=== PATIENT | female | born 1945 | race African-American/Black ===

== ENCOUNTER 2025-08-17 15:39 | Inpatient (IN) | payer MEDICARE, OTHER ==
[~2025-08-17] VITALS: Ht 162.6 cm; Wt 76.2 kg
[2025-08-17 15:45] VITALS: O2SAT 100
[2025-08-17] MEDS ORDERED: IOHEXOL-350 100 ML BOTTLE ONE (16:09)
[2025-08-17 17:46] LABS: BASOPHILS % 0.6 % (0.0-2.0); EOSINOPHILS % 1.4 % (0.0-5.0); HEMATOCRIT. 42.5 % (36.0-48.0); HEMOGLOBIN. 13.6 g/dL (12.0-16.0); LYMPHOCYTES % 13.5 % (20.0-50.0); MEAN PLATELET VOLUME 8.6 fl (7.4-10.4); MONOCYTES % 7.0 % (2.0-8.0); NEUTROPHILS % 77.5 % (40.0-76.0); PLATELET 232 x1000/uL (130-400); RED BLOOD CELL COUNT 4.88 mill/uL (4.2-5.4); RED CELL DISTRIBUTION WIDTH 15.0 % (11.6-14.6)
[2025-08-17 18:00] LABS: CREATININE 1.8 mg/dL (0.6-1.0); INR 1.0
[2025-08-17 18:01] LABS: UREA NITROGEN BLOOD 23 mg/dL (9-23)
[2025-08-17 18:02] LABS: ASPARTATE AMINOTRANSFERASE 12 IU/L (<34)
[2025-08-17 18:03] LABS: BILIRUBIN DIRECT 0.2 mg/dL (<=3.0); BILIRUBIN TOTAL 0.6 mg/dL (0.1-1.0); PROTEIN TOTAL 7.1 g/dL (6.0-8.3)
[2025-08-17 18:55] LABS: TROPONIN I HIGH SENSITIVITY 241 ng/L (3.0-34)
[2025-08-17] MEDS ORDERED: POTASSIUM CHLORIDE 20MEQ TABLET SR PO PRN (20:30)
[2025-08-17] MEDS ORDERED: ACETAMINOPHEN 325MG TABLET PO PRN (20:30)
[2025-08-17] MEDS ORDERED: ONDANSETRON HCL 4MG/2ML INJ IV PRN (20:30)
[2025-08-17] MEDS ORDERED: ENOXAPARIN 40MG/0.4ML SYR SUBCUT SCH (20:30)
[2025-08-17] MEDS ORDERED: IPRATROPIUM/ALBUTEROL 0.5-3(2.5)MG/3ML NEB HHN PRN (20:30)
[2025-08-17] MEDS ORDERED: ASPIRIN 81MG TABLET PO ONE (20:30)
[2025-08-17] MEDS ORDERED: DOCUSATE SODIUM 100MG CAPSULE PO PRN (20:30)
[2025-08-17] MEDS ORDERED: HYDROCODONE/ACETAMINOPHEN 5/325MG TABLET PO PRN (20:30)
[2025-08-17] MEDS ORDERED: MAGNESIUM/ALUMINUM HYDROXIDE/SIMETHICONE 30ML UDC PO PRN (20:30)
[2025-08-17] MEDS ORDERED: DEXTROSE 50% WATER 50ML SYRINGE IV PRN ×2 (20:30)
[2025-08-17] MEDS ORDERED: NALOXONE HCL 0.4MG/ML VIAL IV PRN (20:45)
[2025-08-17 20:47] VITALS: BP 173/66; PULSE 63; RESP 18; TEMP 36.5848
[2025-08-17 21:00] VITALS: BP 173/66; PULSE 68; RESP 20; TEMP 36.3; O2SAT 100
[2025-08-17] MEDS: BLOOD SUGAR DIAGNOSTIC STRIP TEST SCH (21:00)
[2025-08-17] MEDS: HYDRALAZINE 20MG/ML VIAL IV NR (22:24)
[2025-08-17] MEDS: ASPIRIN 81MG TABLET PO NR (22:27)
[2025-08-17] MEDS: ENOXAPARIN 30MG/0.3ML SYR SUBCUT SCH (22:27)
[2025-08-17] MEDS: INSULIN LISPRO 100 UNITS/ML SUBCUT SCH (22:33)
[2025-08-18] VITALS (9 sets, daily range): BP systolic 141–202; BP diastolic 59–79; PULSE 49–84; RESP 17–20; TEMP 36.3–37.1; O2SAT 93–100
[2025-08-18] MEDS ORDERED: AMLO-905 PO (00:03)
[2025-08-18] MEDS ORDERED: OMEP20CA14 PO (00:03)
[2025-08-18] MEDS ORDERED: ROSU40TA MT (00:03)
[2025-08-18] MEDS ORDERED: APIX5TAB PO (00:03)
[2025-08-18] MEDS ORDERED: TERA1CAP54 MT (00:03)
[2025-08-18] MEDS ORDERED: CARV6.2548 PO (00:03)
[2025-08-18] MEDS ORDERED: FURO-152 PO (00:03)
[2025-08-18] MEDS ORDERED: TERA1CAP54 GT (00:03)
[2025-08-18] MEDS ORDERED: POTA10CA93 PO (00:03)
[2025-08-18 06:06] LABS: CREATININE 1.7 mg/dL (0.6-1.0); TRIGLYCERIDE 112 mg/dL (0-150)
[2025-08-18 06:07] LABS: ASPARTATE AMINOTRANSFERASE 13 IU/L (<34); LDL CHOLESTEROL 70 mg/dL (5-100); PROTEIN TOTAL 6.8 g/dL (6.0-8.3); UREA NITROGEN BLOOD 20 mg/dL (9-23)
[2025-08-18 06:08] LABS: BILIRUBIN DIRECT 0.2 mg/dL (<=3.0); PHOSPHORUS 3.3 mg/dL (2.5-4.9); T4 FREE 1.15 ng/dL (0.89-1.76)
[2025-08-18 06:09] LABS: BILIRUBIN TOTAL 0.6 mg/dL (0.1-1.0)
[2025-08-18 07:06] LABS: BASOPHILS % 0.4 % (0.0-2.0); EOSINOPHILS % 0.7 % (0.0-5.0); HEMATOCRIT. 40.4 % (36.0-48.0); HEMOGLOBIN. 13.2 g/dL (12.0-16.0); LYMPHOCYTES % 12.7 % (20.0-50.0); MEAN PLATELET VOLUME 9.0 fl (7.4-10.4); MONOCYTES % 6.6 % (2.0-8.0); NEUTROPHILS % 79.6 % (40.0-76.0); PLATELET 217 x1000/uL (130-400); RED BLOOD CELL COUNT 4.70 mill/uL (4.2-5.4); RED CELL DISTRIBUTION WIDTH 15.2 % (11.6-14.6)
[2025-08-18 07:52] LABS: TROPONIN I HIGH SENSITIVITY 275 ng/L (3.0-34)
[2025-08-18 08:16] LABS: CLARITY URINE CLEAR (CLEAR); COLOR URINE YELLOW (YELLOW); GLUCOSE URINE 1+ (NEGATIVE); KETONES URINE NEGATIVE (NEGATIVE); LEUKOCYTE ESTERASE URINE 1+ (NEGATIVE); NITRITE URINE NEGATIVE (NEGATIVE); OCCULT BLOOD URINE 1+ (NEGATIVE); PH URINE 7.0 (4.5-8.0); PROTEIN URINE 2+ (NEGATIVE); SPECIFIC GRAVITY URINE 1.023 (1.005-1.030); UROBILINOGEN URINE 0.2 E.U./dL (0.2-1.0)
[2025-08-18 08:59] LABS: SQUAMOUS EPITHELIAL CELL URINE 1+ /lpf (RARE/1+)
[2025-08-18 09:01] LABS: BACTERIA URINE 1+; RBC URINE 0-2 /hpf (0-2)
[2025-08-18] MEDS: ASPIRIN 81MG TABLET PO SCH (09:25)
[2025-08-18] MEDS: HYDRALAZINE 20MG/ML VIAL IV PRN (12:34)
[2025-08-18] MEDS ORDERED: APIX2.5T PO (13:49)
[2025-08-18] MEDS: FUROSEMIDE 20MG TABLET PO SCH (14:37)
[2025-08-18] MEDS: AMLODIPINE 10MG TABLET PO SCH (14:37)
[2025-08-18] MEDS ORDERED: NPH,100I SQ ×2 (20:03)
[2025-08-18] MEDS ORDERED: APIXABAN 2.5 MG TABLET PO SCH (21:00)
[2025-08-18] MEDS: TERAZOSIN HCL 1MG CAPSULE PO SCH (22:51)
[2025-08-18] MEDS: HYDRALAZINE HCL 25MG TABLET PO SCH (22:52)
[2025-08-18] MEDS: ATORVASTATIN CALCIUM 40MG TABLET PO SCH (22:52)
[2025-08-18] MEDS: CARVEDILOL 6.25 MG TABLET PO SCH (22:53)
[2025-08-18 23:53] LABS: CLARITY URINE TURBID (CLEAR); COLOR URINE YELLOW (YELLOW); GLUCOSE URINE 2+ (NEGATIVE); KETONES URINE NEGATIVE (NEGATIVE); LEUKOCYTE ESTERASE URINE 3+ (NEGATIVE); NITRITE URINE POSITIVE (NEGATIVE); OCCULT BLOOD URINE 1+ (NEGATIVE); PH URINE 6.0 (4.5-8.0); PROTEIN URINE 2+ (NEGATIVE); SPECIFIC GRAVITY URINE 1.020 (1.005-1.030); UROBILINOGEN URINE 1.0 E.U./dL (0.2-1.0)
[2025-08-19] VITALS (9 sets, daily range): BP systolic 119–178; BP diastolic 61–90; PULSE 60–78; RESP 18; TEMP 35.7–36.6; O2SAT 95–97
[2025-08-19 00:42] LABS: *AMPHETAMINES SCREEN URINE NEGATIVE (NEGATIVE); *BARBITURATES SCREEN URINE NEGATIVE (NEGATIVE); *BENZODIAZEPINES SCREEN URINE NEGATIVE (NEGATIVE); *COCAINE SCREEN URINE NEGATIVE (NEGATIVE); METHADONE URINE SCREEN NEGATIVE (NEGATIVE); OPIATES URINE SCREEN NEGATIVE (NEGATIVE)
[2025-08-19 00:43] LABS: CANNABINOID URINE SCREEN NEGATIVE (NEGATIVE); ECSTASY MDMA SCREEN URINE NEGATIVE (NEGATIVE); PHENCYCLIDINE URINE SCREEN NEGATIVE (NEGATIVE)
[2025-08-19 00:58] LABS: BACTERIA URINE 1+; SQUAMOUS EPITHELIAL CELL URINE 1+ /lpf (RARE/1+); WBC URINE TNTC /hpf (0-2)
[2025-08-19] MEDS: CEFTRIAXONE 1GM/50ML 50 ML IV SCH (06:50)
[2025-08-19 08:25] LABS: BASOPHILS % 0.4 % (0.0-2.0); EOSINOPHILS % 1.2 % (0.0-5.0); HEMATOCRIT. 39.3 % (36.0-48.0); HEMOGLOBIN. 13.0 g/dL (12.0-16.0); LYMPHOCYTES % 12.2 % (20.0-50.0); MEAN PLATELET VOLUME 8.7 fl (7.4-10.4); MONOCYTES % 7.3 % (2.0-8.0); NEUTROPHILS % 78.9 % (40.0-76.0); PLATELET 235 x1000/uL (130-400); RED BLOOD CELL COUNT 4.58 mill/uL (4.2-5.4); RED CELL DISTRIBUTION WIDTH 15.1 % (11.6-14.6)
[2025-08-19 08:34] LABS: CREATININE 2.0 mg/dL (0.6-1.0); TRIGLYCERIDE 74 mg/dL (0-150); UREA NITROGEN BLOOD 23 mg/dL (9-23)
[2025-08-19 08:35] LABS: LDL CHOLESTEROL 61 mg/dL (5-100)
[2025-08-19 08:36] LABS: ASPARTATE AMINOTRANSFERASE 13 IU/L (<34); BILIRUBIN DIRECT 0.2 mg/dL (<=3.0); BILIRUBIN TOTAL 0.7 mg/dL (0.1-1.0); PHOSPHORUS 3.3 mg/dL (2.5-4.9); PROTEIN TOTAL 6.5 g/dL (6.0-8.3)
[2025-08-19] MEDS ORDERED: APIXABAN 5 MG TABLET PO SCH (09:00)
[2025-08-19] MEDS: APIXABAN 2.5 MG TABLET PO SCH (11:48)
[2025-08-19] MEDS: HYDRALAZINE HCL 50MG TABLET PO SCH (17:29)
== END 2025-08-19 22:00 | disposition short-term general hospital (02) | DRG 64 ==
LOC: ER 15:39 → EDBEDREQ 17:59 → EDBEDREQTM 17:59 → ENRESERV 19:10 → 8WST 20:48
PROVIDERS: ADMIT Family Medicine Adult Medicine; ATTEND Family Medicine Adult Medicine
DX: I63.532 Cerebral infarction due to unspecified occlusion or stenosis of left posterior cerebral artery (principal); G93.41 Metabolic encephalopathy; G81.91 Hemiplegia, unspecified affecting right dominant side; G90.89 Other disorders of autonomic nervous system; N17.9 Acute kidney failure, unspecified; I48.91 Unspecified atrial fibrillation; Z79.01 Long term (current) use of anticoagulants; E11.22 Type 2 diabetes mellitus with diabetic chronic kidney disease; I12.9 Hypertensive chronic kidney disease with stage 1 through stage 4 chronic kidney disease, or unspecified chronic kidney disease; N18.9 Chronic kidney disease, unspecified; R47.01 Aphasia; E78.5 Hyperlipidemia, unspecified; R29.702 NIHSS score 2; R29.810 Facial weakness; Z79.4 Long term (current) use of insulin; Z79.82 Long term (current) use of aspirin; Z79.899 Other long term (current) drug therapy; Z86.73 Personal history of transient ischemic attack (TIA), and cerebral infarction without residual deficits; R47.1 Dysarthria and anarthria
CPT/HCPCS: 36415; 70496; 70498; 70551; 71045; 80048; 80061; 80076; 80305; 80320; 81003; 82962; 83036; 83735; 84100; 84439; 84484; 85025; 93005; 93306; 97162; 97166; 97535; 99291; J0360; J0696; J1650; J1815; Q9967; G0480